=== PATIENT | male | born 1945 | race Hispanic/Latino ===

== ENCOUNTER → 2020-06-13 | Day surgery (SDC) | payer MEDICARE, SELFPAY ==
[2020-06-08 10:17] LABS: BASOPHILS # (AUTO) 0.1 (0.0-0.1); BASOPHILS % 1.1 % (0.0-1.0); EOSINOPHILS # (AUTO) 0.4 (0.0-0.4); EOSINOPHILS % 6.2 % (0.0-6.0); HEMATOCRIT 43.8 % (38.2-49.6); HEMOGLOBIN 14.8 g/dL (14.0-18.0); LYMPHOCYTES # (AUTO) 1.8 (1.0-3.2); MEAN CORPUSCULAR HEMOGLOBIN 29.7 pg (28-32); MEAN CORPUSCULAR HGB CONC 33.8 g/dL (31-35); MEAN CORPUSCULAR VOLUME 87.8 fL (81-99); MONOCYTES # (AUTO) 0.6 (0.2-0.8); MONOCYTES % 9.7 % (4.4-11.3); NEUTROPHILS # (AUTO) 2.9 (2.1-6.9); NEUTROPHILS % 51.6 % (38.7-80.0); PLATELET COUNT 211 x10e3/uL (140-360); RED BLOOD COUNT 4.99 x10e6/uL (4.3-5.7)
[~2020-06-13] VITALS: Ht 160 cm; Wt 64.0 kg
[~2020-06-13] MED LIST: CETIRIZINE HCL10 MG PO; LIDOCAINE HCL 2% LOCAL INJ 5 ML SDV VIAL INJ ONE; LISINOPRIL-HCT1 EACH PO; METHOTREXATE2.5 MG PO; MIDAZOLAM HCL 2 MG/2 ML VIAL ONE; NEPHRO-VITE TABL1 EA PO; NEXIUM40 MG PO; PROPOFOL IV EMULSION 10 MG/ML 20 ML VIAL ONE
[2020-06-13 11:58] VITALS: BP 134/73
== END | disposition home or self-care (01) ==
LOC: OR 08:10
PROVIDERS: ATTEND Internal Medicine Gastroenterology
DX: Z87.19 Personal history of other diseases of the digestive system (principal); K21.9 Gastro-esophageal reflux disease without esophagitis; K29.70 Gastritis, unspecified, without bleeding; K44.9 Diaphragmatic hernia without obstruction or gangrene; I10 Essential (primary) hypertension; L40.9 Psoriasis, unspecified; Z01.810 Encounter for preprocedural cardiovascular examination; Z01.812 Encounter for preprocedural laboratory examination; Z20.828 Contact with and (suspected) exposure to other viral communicable diseases; K29.50 Unspecified chronic gastritis without bleeding; K22.70 Barrett's esophagus without dysplasia
CPT/HCPCS: 36415; 43239; 85025; 93005; J2001; J2250; J2704; U0002